=== PATIENT | female | born 1935 | race Caucasian/White ===

== ENCOUNTER → 2018-09-14 | Outpatient (CLI) | payer MEDICARE, OTHER ==
[~2018-09-14] MED LIST: Aspir 8181 MG PO; LEVSOD88 PO
== END | disposition home or self-care (01) ==
LOC: LAB SHORT 14:01 → PLD 14:01
DX: D48.5 Neoplasm of uncertain behavior of skin (principal)
CPT/HCPCS: 88305

== ENCOUNTER → 2021-01-29 | Outpatient (CLI) | payer MEDICARE, OTHER | LOC: LAB SHORT 10:51 → LAB 10:51 | DX: D48.5 Neoplasm of uncertain behavior of skin (principal); Z88.1 Allergy status to other antibiotic agents | CPT/HCPCS: 88305 ==